=== PATIENT | female | born 1935 | race Caucasian/White ===

== ENCOUNTER → 2017-10-06 | Outpatient (CLI) | payer OTHER | LOC: FCPNEURO 20:00 | PROVIDERS: ATTEND Psychiatry & Neurology Sleep Medicine | DX: G47.34 Idiopathic sleep related nonobstructive alveolar hypoventilation (principal); G47.33 Obstructive sleep apnea (adult) (pediatric) ==

== ENCOUNTER → 2018-04-19 | Outpatient (CLI) | payer OTHER | LOC: BHFA 13:15 | PROVIDERS: ATTEND Nurse Practitioner Adult Health | DX: I10 Essential (primary) hypertension (principal); I73.9 Peripheral vascular disease, unspecified; I25.10 Atherosclerotic heart disease of native coronary artery without angina pectoris; R00.1 Bradycardia, unspecified ==